=== PATIENT | female | born 1970 | race Caucasian/White ===

== ENCOUNTER 2019-12-21 11:23 | Emergency (ER) | payer SELFPAY ==
[~2019-12-21] VITALS: Ht 165.1 cm; Wt 87.1 kg
[2019-12-21 11:25] VITALS: Ht 165.1 cm; Wt 87.1 kg
[2019-12-21 13:06] LABS: BASOPHIL % 0.8 % (0-2); PLATELET COUNT 359 x10^3mcL (130-400); RED CELL DISTRIBUTION WIDTH 14.6 % (11.5-14.5)
[2019-12-21 13:48] LABS: CALCIUM 8.4 mg/dL (8.5-10.1); CARBON DIOXIDE 24.7 mmol/L (21-32); CHLORIDE SERUM 103 mmol/L (98-107); CREATININE SERUM 0.8 mg/dL (0.6-1.0); GFR1 > 60 mL/min; GLUCOSE SERUM 100 mg/dL (74-106); POTASSIUM SERUM 3.5 mmol/L (3.5-5.1); SODIUM SERUM 137 mmol/L (136-145)
[2019-12-21 14:53] VITALS: BP 141/96
== END 2019-12-21 14:53 | disposition home or self-care (01) ==
LOC: ED 11:23
PROVIDERS: Emergency Medicine
DX: G44.209 Tension-type headache, unspecified, not intractable (principal); F41.9 Anxiety disorder, unspecified; Z20.828 Contact with and (suspected) exposure to other viral communicable diseases
CPT/HCPCS: J1885; U0003-CS